=== PATIENT | female | born 1945 | race Caucasian/White ===

== ENCOUNTER 2019-12-24 07:46 | Inpatient (IN) | payer OTHER ==
--- NOTE | 2019-12-24 08:07 | PDOC ---
History of Present Illness - General Chief Complaint: Lethargy Stated Complaint: LATHARGIC Time Seen by Provider: 12/24/19 07:59 - History of Present Illness Initial Comments: 12/24/19 09:16 HPI: This is a 74 y/o female with a PMH of HTN, PVD, IDDM, anemia, epilepsy, HLD, schizophrenia, CVA with residual deficits, baseline non-verbal BIBA from [facility] due to lethargy. She was started on unknown IV abx for a presumed infection due to a WBC of 15.9 on labs 2 days ago. Patient was febrile 102.4 upon arrival. ROS: Unable to evaluate because patient is non-verbal. PMH: HTN, PVD, IDDM, anemia, epilepsy, HLD, schizophrenia, CVA, baseline non- verbal PSx: Denied Social Hx: Denied etoh, tobacco, drug use Meds: See nurse note Allergies: See nurse note PE: GENERAL: Awake. Patient is non-verbal at baseline. Does not follow commands. HEENT: Normocephalic, atraumatic. PERRLA, EOMI. NECK: Normal ROM and supple. No lymphadenopathy, JVD, or masses. CARDIOVASCULAR: Regular rate and rhythm, normal S1 and S2, no murmurs, rubs or gallops PULMONARY: No respiratory distress. Breath sounds equal, clear to auscultation bilaterally. No wheezes, rales or rhonchi. ABDOMEN: Soft, normoactive bowel sounds. No guarding, no rebound. No masses EXTREMITIES: Normal range of motion, no edema or erythema. NEUROLOGICAL: Cranial nerves II through XII grossly intact. SKIN: Warm, Dry, normal turgor, no rashes or lesions noted. Normal capillary refill. PSYCHIATRIC: Appropriate affect. Cooperative MDM: This is a 74 y/o female with a PMH of HTN, PVD, IDDM, anemia, epilepsy, HLD, schizophrenia, CVA with residual deficits, baseline non-verbal BIBA from [facility] due to lethargy, leukocytosis. - Patient is hemodynamically stable - Per EMS signout from [facility], patient is non-verbal at baseline. - Recently started on abx for a WBC count of 15.9 found on labs at [facility]. - Febrile at 102.4 in ED. Sepsis workup: CXR: No acute abnormalities EKG: No ST elevations or T wave inversions Sinus rhythm Vent rate 95bpm [place] interval 126ms QRS duration 78ms QT/QTc 336/422 LAbs: WBC 14.6 Na 152 BUN 46 Creat .7 - Sodium and BUN unchanged from labs sent from group home Troponin neg LA 1.6 - 1g Ceftriaxone to cover UTI - Tylenol for fever 12/24/19 10:20 - Patient signed out to Dr. Mata Past History - Medical History Allergies/Adverse Reactions: Allergies Allergy/AdvReac Type Severity Reaction Status Date / Time No Known Allergies Allergy Verified 12/24/19 08:14 Home Medications: Ambulatory Orders Calcium Carbonate/Vitamin D3 [Caltrate-600 Plus (Nf)] 1 combo NR BID 04/21/12 Docusate Sodium [Colace -] 200 mg PO HS 04/21/12 Haloperidol [Haldol -] 3 mg PO HS 04/21/12 Losartan Potassium 25 mg PO DAILY 04/21/12 Simvastatin [Zocor -] 40 mg PO HS 04/21/12 levETIRAcetam [Keppra Oral Solution -] 750 mg PO BID 04/21/12 Haloperidol 1 mg PO BID PRN 06/19/13 Acetaminophen [Tylenol .Regular Strength -] 650 mg PO Q6H PRN #0 tablet 06/21/13 Insulin (Levemir) [Levemir Flexpen -] 10 units SQ HS #0 06/21/13 Magnesium Chloride [Slow-Mag -] 64 mg PO DAILY@0900 #0 tablet.sa 06/21/13 Oseltamivir Phosphate [Tamiflu -] 75 mg PO BID #0 capsule 06/21/13 levoFLOXacin [Levaquin -] 500 mg PO DAILY #7 tablet 06/21/13 Diabetes: Yes HTN: Yes Hypercholesterolemia: Yes Seizures: Yes - Psycho-Social/Smoking History Smoking Status: No Smoking History: Former smoker Have you smoked in the past 12 months: No Number of Cigarettes Smoked Daily: 0 ED Treatment Course - LABORATORY CBC & Chemistry Diagram: 12/24/19 08:34 12/24/19 08:34 Discharge - Discharge Information Problems reviewed: Yes Clinical Impression/Diagnosis: Sepsis Qualifiers: Sepsis type: sepsis due to unspecified organism Sepsis acute organ dysfunction status: unspecified Qualified Code(s): A41.9 - Sepsis, unspecified organism - Follow up/Referral - Patient Discharge Instructions - Post Discharge Activity
[2019-12-24] MEDS ORDERED: SODIUM CHLORIDE 0.9% 500 ML INFUS.BAG IV ONE (08:13)
[2019-12-24 08:15] VITALS: BMI 27.4
[2019-12-24 08:51] LABS: VENOUS PCO2 46.5 mmHg (38-52); VENOUS PH 7.418 (7.310-7.410)
[2019-12-24 08:52] LABS: BASO % 0.3 % (0-2.0); EOS % 0.3 % (0-4.5); HEMATOCRIT 41.8 % (32.4-45.2); HEMOGLOBIN 13.4 GM/dL (10.7-15.3); LYMPH % 27.5 % (8-40); MEAN CELL VOLUME 87.6 fl (80-96); MEAN PLT VOLUME 8.7 fl (7.5-11.1); MONO % 7.4 % (3.8-10.2); NEUT % 64.5 % (42.8-82.8); PLATELET COUNT 273 K/MM3 (134-434); RBC 4.78 M/mm3 (3.60-5.2); RDW 16.1 % (11.6-15.6); WHITE BLOOD COUNT 14.6 K/mm3 (4.0-10.0)
[2019-12-24] MEDS ORDERED: ACETAMINOPHEN 1000 MG/100 ML VIAL (NON FORMULARY) IVPB ONE (08:56)
[2019-12-24] MEDS ORDERED: LACTATED RINGERS SOLUTION 1000 ML INFUS.BAG IV ONE (09:00)
[2019-12-24 09:03] LABS: EPI CELLS 24 /uL (0-25.1); HYALINE CASTS 95 /uL (0-3.1); PH,URINE 6.5 (5.0-8.0); URINE APPEARANCE CLOUDY; URINE BACTERIA >9,000 /uL (0-1359); URINE BILIRUBIN NEGATIVE (NEGATIVE); URINE COLOR YELLOW; URINE GLUCOSE (UA) NEGATIVE (NEGATIVE); URINE KETONE NEGATIVE (NEGATIVE); URINE LEUK ESTERASE 2+ (NEGATIVE); URINE NITRITE POSITIVE (NEGATIVE); URINE PROTEIN 1+ (NEGATIVE); URINE RBC 41 /uL (0-23.9); URINE WBC 632 /uL (0-25.8)
[2019-12-24] MEDS ORDERED: ACETAMINOPHEN INJECTION 100 ML IVPB ONE (09:04)
[2019-12-24] MEDS ORDERED: CEFTRIAXONE 1 GM/50 ML BAG ONE (09:05)
[2019-12-24 09:06] LABS: ACTIVATED PTT 35.8 SECONDS (25.2-36.5)
[2019-12-24 09:12] LABS: INR 1.17 (0.83-1.09); PROTHROMBIN TIME (PATIENT) 14.3 SEC (9.7-13.0)
[2019-12-24 09:17] LABS: POTASSIUM 4.3 mmol/L (3.5-5.1)
[2019-12-24 09:20] LABS: BLOOD UREA NITROGEN 46.7 mg/dL (7-18)
[2019-12-24 09:23] LABS: CREATININE 0.7 mg/dL (0.55-1.3)
[2019-12-24 09:24] LABS: BILIRUBIN,TOTAL 0.5 mg/dL (0.2-1)
[2019-12-24 09:25] LABS: TOT PROT 7.1 g/dl (6.4-8.2)
[2019-12-24 10:08] LABS: URINE CRYSTALS NON SEEN /hpf; YEAST NON SEEN (NEGATIVE)
--- NOTE | 2019-12-24 10:53 | PDOC ---
Documentation entered by Celio Hodge SCRIBE, acting as scribe for Ariane Juares MD. Ariane Juares MD: This documentation has been prepared by the Naveen maldonado Aaron, SCRIBE, under my direction and personally reviewed by me in its entirety. I confirm that the documentation accurately reflects all work, treatment, procedures, and medical decision making performed by me. Attending Attestation - Resident Resident Name: Citlali Thomson - ED Attending Attestation I have performed the following: I have examined & evaluated the patient, The case was reviewed & discussed with the resident, I agree w/resident's findings & plan, Exceptions are as noted - HPI HPI: 12/24/19 10:29 The patient is a 74 year old female with a significant PMH of HTN, PVD, IDDM, anemia, epilepsy, HLD, schizophrenia, CVA with residual deficits (baseline non- verbal), who presents to the emergency department [facility] due to lethargy. Patient was had a fever of 102.4 on arrival. Allergies: NKDA Social Hx: Former smoker PCP: [facility] - Physicial Exam PE: 12/24/19 09:48 General: non-toxic appearing Chest: CTAB, good air entry, no wheezes rales or rhonchi CVS: + s1 s2, RRR Abdomen: soft, nt, no rebound, no guarding - Critical Care Time Total Critical Care Time: 30 Critical Care Statement: The care of this patient involved high complexity decision making to prevent further life threatening deterioration of the patient's condition and/or to evaluate & treat vital organ system(s) failure or risk of failure. - Medical Decision Making 12/24/19 09:48 74 yo F from [place] sent for increased lethargy although patient non-verbal at baseline, found to be febrile in ED, possible PNA vs. COVID vs. UTI. Plan: -labs -urine -COVID swab -cxr -IVF -tylenol -reassess This clinical encounter is taking place during a federal and state health care emergency attributable to the novel [place] Virus pandemic. The [employer] of the Department of Health and Human Services has declared, pursuant to the Public Health Service Act 319F-3 (42 U.S.C. 247d-6d), that a covered persons activities related to medical countermeasures against COVID-19 will be immune from liability under Federal and State law. 12/24/19 09:51 UA consistent with UTI. Will treat for urosepsis with ceftriaxone and admit. Heart Score/ECG Review - ECG Impressions Comment:: 12/24/19 09:51 sinus, rate 95, no ischemic changes Discharge - Discharge Information Problems reviewed: Yes Clinical Impression/Diagnosis: Sepsis Qualifiers: Sepsis type: sepsis due to unspecified organism Sepsis acute organ dysfunction status: unspecified Qualified Code(s): A41.9 - Sepsis, unspecified organism - Follow up/Referral - Patient Discharge Instructions - Post Discharge Activity
--- NOTE | 2019-12-24 12:24 | HP ---
Admitting History and Physical - Admission Chief Complaint: Acute fever and lethargy History of Present Illness: This 74 yr old w/f with PMH of HTN, PVD, IDDM, anemia, epilepsy, HLD, schizophrenia, CVA, nonverbal admitted via ER with an acute fever, lethargy, leukocytosis, and an acute UTI, acute hypernatremia and an acute prerenal azotemia. History Source: Medical Record Limitations to Obtaining History: Dementia - Past Medical History [employer] SUPER[employer]OR: Yes: CVA, Dementia, Seizure Cardiovascular: Yes: HTN, Hyperlipdemia Pulmonary: No: Asthma, Bronchitis, Cancer, COPD, O2 Dependent, Pneumonia, Previously Intubated, Pulmonary Embolus, Pulmonary Fibrosis, Sleep Apnea, Other Gastrointestinal: Yes: Constipation Hepatobiliary: No: Cirrhosis, Cholelithiasis, Cholecystitis, Choledocholithiasis, Hepatitis A, Hepatitis B, Hepatitis C, Other Renal/: No: Renal Failure, Renal Inusuff, BPH, Cancer, Hematuria, Hemodialysis, Neurogenic Bladder, Renal Calculi, UTI, Other Reproductive: No: Ectopic , Endometriosis, Fibroids, PID, Polycystic Ovary Syndrome, Postmenopausal, Other ...: No Heme/Onc: Yes: Anemia Infectious Disease: No: AIDS, C-Diff, Herpes Zoster, HIV, MRSA, STD's, Tuberculosis, VREF, Other Psych: Yes: Schizophrenia Musculoskeletal: Yes: Osteoarthritis Rheumatology: No: Fibromyalgia, Gout, Lupus, Rheumatoid Arthritis, Sarcoidosis, Vasculitis, Other ENT: No: Allergic Rhinitis, Sinusitis, Other Endocrine: Yes: Diabetes Mellitus Dermatology: No: Basal Cell, Cellulitis, Eczema, Melanoma, Psoriasis, Squamous C ell, Other - Past Surgical History Past Surgical History: No: None, AAA Repair, AICD, Amputation, Appendectomy, Arthrosocopy, AV Fistula/Graft, Bariatric Surgery, Breast Biopsy, Bypass, CABG, Carotid Endarterectomy, Cataract Removal, Cholecystectomy, Colectomy, Colonoscopy, Colostomy, Craniotomy, , Cystectomy, Hernia Repair, Hysterectomy, Ileal Conduit, Ileosotomy, Joint Replacement, Kidney Transplant, Laminectomy, Liver Transplant, Mastectomy, Nephrectomy, Oopherectomy, Orchiectomy, Permanent Pacemaker, Prostatectomy, Splenectomy, Stent, Thoraco becky, TURP, Tonsillectomy, Tubal Ligation, Upper Endoscopy, Valve Replacement, Vasectomy, Vein Stripping/Ligation - Smoking History Smoking history: Former smoker Have you smoked in the past 12 months: No Aproximately how many cigarettes per day: 0 - Alcohol/Substance Use Hx Alcohol Use: No - Social History Usual Living Arrangement: Yes: [facility] Home Medications - Allergies Allergies/Adverse Reactions: Allergies Allergy/AdvReac Type Severity Reaction Status Date / Time No Known Allergies Allergy Verified 12/24/19 08:14 - Home Medications Home Medications: Ambulatory Orders Calcium Carbonate/Vitamin D3 [Caltrate-600 Plus (Nf)] 1 combo NR BID 04/21/12 Docusate Sodium [Colace -] 200 mg PO HS 04/21/12 Haloperidol [Haldol -] 3 mg PO HS 04/21/12 Losartan Potassium 25 mg PO DAILY 04/21/12 Simvastatin [Zocor -] 40 mg PO HS 04/21/12 levETIRAcetam [Keppra Oral Solution -] 750 mg PO BID 04/21/12 Haloperidol 1 mg PO BID PRN 06/19/13 Acetaminophen [Tylenol .Regular Strength -] 650 mg PO Q6H PRN #0 tablet 06/21/13 Insulin (Levemir) [Levemir Flexpen -] 10 units SQ HS #0 06/21/13 Magnesium Chloride [Slow-Mag -] 64 mg PO DAILY@0900 #0 tablet.sa 06/21/13 Oseltamivir Phosphate [Tamiflu -] 75 mg PO BID #0 capsule 06/21/13 levoFLOXacin [Levaquin -] 500 mg PO DAILY #7 tablet 06/21/13 Review of Systems - Review of Systems Constitutional: reports: Fever, Lethargy Eyes: reports: No Symptoms HENT: reports: No Symptoms Neck: reports: No Symptoms Cardiovascular: reports: No Symptoms Respiratory: reports: No Symptoms Gastrointestinal: reports: Constipation Genitourinary: reports: No Symptoms Breasts: reports: No Symptoms Reported Musculoskeletal: reports: Decreased ROM, Muscle Weakness Integumentary: reports: No Symptoms Neurological: reports: Confusion, Pre-Existing Deficit, Unsteady Gait, Weakness Endocrine: reports: No Symptoms Hematology/Lymphatic: reports: No Symptoms Psychiatric: reports: Paranoia Physical Examination Vital Signs: Vital Signs Temperature 98.9 F 12/24/19 10:45 Pulse Rate 67 12/24/19 10:45 Respiratory Rate 19 12/24/19 10:45 Blood Pressure 106/52 L 12/24/19 10:45 O2 Sat by Pulse Oximetry (%) 98 12/24/19 10:45 Constitutional: Yes: Well Nourished, No Distress, Calm Eyes: Yes: Conjunctiva Clear, EOM Intact HENT: Yes: Atraumatic, Normocephalic Neck: Yes: Supple, Trachea Midline Cardiovascular: Yes: Regular Rate and Rhythm Respiratory: Yes: Regular, CTA Bilaterally Gastrointestinal: Yes: Normal Bowel Sounds, Soft ...Rectal Exam: Yes: Deferred Renal/: Yes: Zepeda Present, Incontinence Breast(s): Yes: WNL Musculoskeletal: Yes: Joint Stiffness, Muscle Weakness Extremities: Yes: WNL Edema: No Peripheral Pulses WNL: Yes Integumentary: Yes: Skin Tear Neurological: Yes: Alert, Lethargy, Pre-Existing Deficit, Seizure, Unsteady Gait, Weakness ...Motor Strength: LUE (muscle weakness), LLE (muscle weakness), RUE (muscle weakness), RLE (muscle weakness) Psychiatric: Yes: Alert Labs: CBC, BMP 12/24/19 08:34 12/24/19 08:34 Imaging - Results Chest X-ray: Report Reviewed EKG: Report Reviewed Other: Report Reviewed (lab data reviewed) Problem List - Problems (1) Urinary tract infection Code(s): N39.0 - URINARY TRACT INFECTION, SITE NOT SPECIFIED (2) Fever Code(s): R50.9 - FEVER, UNSPECIFIED (3) Leukocytosis Code(s): D72.829 - ELEVATED WHITE BLOOD CELL COUNT, UNSPECIFIED (4) Prerenal azotemia Code(s): R79.89 - OTHER SPECIFIED ABNORMAL FINDINGS OF BLOOD CHEMISTRY (5) Dehydration Code(s): E86.0 - DEHYDRATION (6) Hypernatremia Code(s): E87.0 - HYPEROSMOLALITY AND HYPERNATREMIA (7) Sepsis due to urinary tract infection Code(s): A41.9 - SEPSIS, UNSPECIFIED ORGANISM; N39.0 - URINARY TRACT INFECTION, SITE NOT SPECIFIED (8) Sepsis Code(s): A41.9 - SEPSIS, UNSPECIFIED ORGANISM Qualifiers: Sepsis type: sepsis due to unspecified organism Sepsis acute organ dysfunction status: unspecified Qualified Code(s): A41.9 - Sepsis, unspecified organism Assessment/Plan Assessment/plan: acute sepsis due to UTI, acute lethargy, acute fever, acute leukocytosis, acute hypernatremia, acute prerenal azotemia, acute dehydration, nonverbal, htn, hld, pvd, iddm, schizophremia, cva; IV fluids for dehydration and prerenal azotemia; IV Ceftriaxone for sepsis due to UTI; SQ Lovenox and oral pantoprazole for DVT/GI prophylaxis; physical therapy for deconditioning; atorvastatin for HLD; losartan for HTN; Haloperidol for behavior disorder; docusate for constipation; sliding scale regular insulin coverage for IDDM; Keppra for seizure disorder; consult to ID pending.
[2019-12-24] MEDS ORDERED: HALOPERIDOL 1 MG TABLET PO PRN (13:18)
[2019-12-24] MEDS ORDERED: ACETAMINOPHEN 325 MG TABLET (FP) PO PRN (13:20)
[2019-12-24] MEDS ORDERED: DEXTROSE 5%-WATER - 1,000 ML IV SCH (13:30)
[2019-12-24] MEDS ORDERED: ENOXAPARIN NA (PORCINE) 30 MG/0.3 ML DISP.SYRIN SQ SCH (13:45)
[2019-12-24] MEDS: DOCUSATE SODIUM 100 MG CAPSULE (FP) PO SCH (14:20)
[2019-12-24] MEDS: CHOLECALCIFEROL (VIT D3) 1,000 UNIT (25 MCG) TABLET PO SCH (14:20)
[2019-12-24] MEDS: DEXTROSE 5%-WATER - 1,000 ML IV SCH (16:41)
[2019-12-24] MEDS: LOSARTAN POTASSIUM 25 MG TABLET PO SCH (16:42)
[2019-12-24] MEDS: levETIRAcetam 500 MG/5 ML ORAL SOLUTION (UNIT-DOSE CUPS) PO SCH ×2 (16:42→23:34)
[2019-12-24] MEDS: PANTOPRAZOLE 40 MG TABLET PO SCH (16:42)
[2019-12-24] MEDS: CALCIUM CARBONATE 650 MG TABLET PO SCH ×2 (17:07→23:20)
[2019-12-24] MEDS ORDERED: ENOXAPARIN NA (PORCINE) 40 MG/0.4 ML DISP.SYRIN SQ SCH (17:08)
[2019-12-24] MEDS: MAGNESIUM CL 64 MG TABLET.SA PO SCH (17:09)
[2019-12-24] MEDS: ENOXAPARIN NA (PORCINE) 40 MG/0.4 ML DISP.SYRIN SQ SCH (17:18)
[2019-12-24] MEDS: INSULIN SLIDING SCALE (NOVOLOG) 1 VIAL SQ SCH (18:16)
[2019-12-24] MEDS ORDERED: ACETAMINOPHEN 650 MG SUPP.RECT RC PRN (23:12)
[2019-12-24] MEDS: HALOPERIDOL 1 MG TABLET PO SCH (23:21)
[2019-12-24] MEDS: ATORVASTATIN CA 20 MG TABLET (FP) PO SCH (23:21)
[2019-12-24] MEDS: levETIRAcetam 500 MG/5 ML INJECTION VIAL IVPB SCH (23:47)
[2019-12-25] MEDS: INSULIN SLIDING SCALE (NOVOLOG) 1 VIAL SQ SCH ×3 (06:09→17:56)
[2019-12-25 07:33] LABS: BASO % 1.3 % (0-2.0); EOS % 0.9 % (0-4.5); HEMATOCRIT 34.5 % (32.4-45.2); HEMOGLOBIN 11.2 GM/dL (10.7-15.3); MCH 28.6 pg (25.7-33.7); MCHC 32.4 g/dl (32.0-36.0); MEAN CELL VOLUME 88.3 fl (80-96); MEAN PLT VOLUME 8.9 fl (7.5-11.1); MONO % 5.4 % (3.8-10.2); NEUT % 67.4 % (42.8-82.8); PLATELET COUNT 196 K/MM3 (134-434); RDW 15.4 % (11.6-15.6); WHITE BLOOD COUNT 11.3 K/mm3 (4.0-10.0)
[2019-12-25 07:43] LABS: POTASSIUM 3.1 mmol/L (3.5-5.1)
[2019-12-25 07:48] LABS: CALCIUM 8.1 mg/dL (8.5-10.1)
[2019-12-25 07:49] LABS: ALBUMIN 2.5 g/dl (3.4-5.0); BLOOD UREA NITROGEN 29.2 mg/dL (7-18)
[2019-12-25 07:52] LABS: CREATININE 0.3 mg/dL (0.55-1.3)
[2019-12-25 07:53] LABS: BILIRUBIN,TOTAL 0.4 mg/dL (0.2-1); TOT PROT 5.8 g/dl (6.4-8.2)
[2019-12-25] MEDS ORDERED: PT OWN MED DRAWER 7, Y5N ONE (09:29)
[2019-12-25 09:34] LABS: ERYTHROCYTE SEDIMENTATION RATE 46 mm/hr (0-30)
[2019-12-25] MEDS: ENOXAPARIN NA (PORCINE) 40 MG/0.4 ML DISP.SYRIN SQ SCH (09:40)
[2019-12-25] MEDS: LOSARTAN POTASSIUM 25 MG TABLET PO SCH (09:44)
[2019-12-25] MEDS: CALCIUM CARBONATE 650 MG TABLET PO SCH ×2 (09:45→22:32)
[2019-12-25] MEDS: CHOLECALCIFEROL (VIT D3) 1,000 UNIT (25 MCG) TABLET PO SCH (09:45)
[2019-12-25] MEDS: PANTOPRAZOLE 40 MG TABLET PO SCH (09:45)
[2019-12-25] MEDS: MAGNESIUM CL 64 MG TABLET.SA PO SCH (09:45)
[2019-12-25] MEDS: DOCUSATE SODIUM 100 MG CAPSULE (FP) PO SCH (09:45)
--- NOTE | 2019-12-25 10:08 | PN ---
Progress Note, Physician Chief Complaint: Patient seen and examined at the bedside, no acute events from last night, nonverbal, afebrile, fair appetite. History of Present Illness: This 74 yr old w/f with PMH of HTN, PVD, IDDM, anemia, CVA, schizophrenia, HLD, epilepsy admitted via ER with an acute fever, lethargy, UTI, dehydration, prerenal azotemia, and an acute hypernatremia. - Current Medication List Current Medications: Active Medications Acetaminophen (Tylenol -) 650 mg PO Q6H PRN PRN Reason: FEVER Acetaminophen (Tylenol Suppository -) 650 mg RC Q6H PRN PRN Reason: FEVER Atorvastatin Calcium (Lipitor -) 20 mg PO HS [facility] Last Admin: 12/24/19 23:21 Dose: Not Given Documented by: Calcium Carbonate (Calcium Carbonate -) 650 mg PO BID [facility] Last Admin: 12/25/19 09:45 Dose: 650 mg Documented by: Cholecalciferol (Vitamin D3 -) 1,000 unit PO DAILY [facility] Last Admin: 12/25/19 09:45 Dose: 1,000 unit Documented by: Docusate Sodium (Colace -) 200 mg PO DAILY [facility] Last Admin: 12/25/19 09:45 Dose: Not Given Documented by: Enoxaparin Sodium (Lovenox -) 40 mg SQ DAILY [facility] Last Admin: 12/25/19 09:40 Dose: 40 mg Documented by: Haloperidol (Haldol -) 3 mg PO HS [facility] Last Admin: 12/24/19 23:21 Dose: Not Given Documented by: Haloperidol (Haldol -) 1 mg PO BID PRN PRN Reason: AGITATION Dextrose (D5w -) 1,000 mls @ 60 mls/hr IV ASDIR [facility] Last Admin: 12/24/19 16:41 Dose: 60 mls/hr Documented by: Insulin Aspart (Novolog Vial Sliding Scale -) 1 vial SQ TIDAC [facility]; Protocol Last Admin: 12/25/19 06:09 Dose: 2 units Documented by: Levetiracetam (Keppra Injection -) 750 mg IVPB Q12H [facility] Last Admin: 12/24/19 23:47 Dose: 750 mg Documented by: Losartan Potassium (Cozaar -) 25 mg PO DAILY [facility] Last Admin: 12/25/19 09:44 Dose: 25 mg Documented by: Magnesium Chloride (Slow-Mag -) 64 mg PO DAILY [facility] Last Admin: 12/25/19 09:45 Dose: 64 mg Documented by: Pantoprazole Sodium (Protonix -) 40 mg PO DAILY [facility] Last Admin: 12/25/19 09:45 Dose: 40 mg Documented by: - Objective Vital Signs: Vital Signs Temperature 97.5 F L 12/25/19 06:00 Pulse Rate 70 12/25/19 06:00 Respiratory Rate 18 12/25/19 09:00 Blood Pressure 142/79 12/25/19 06:00 O2 Sat by Pulse Oximetry (%) 99 12/25/19 09:00 Constitutional: Yes: Well Nourished, No Distress, Calm Eyes: Yes: Conjunctiva Clear, EOM Intact HENT: Yes: Atraumatic, Normocephalic Neck: Yes: Supple, Trachea Midline Cardiovascular: Yes: Regular Rate and Rhythm Respiratory: Yes: Regular, CTA Bilaterally Gastrointestinal: Yes: Normal Bowel Sounds, Soft ...Rectal Exam: Yes: Deferred Genitourinary: Yes: Zepeda Present, Incontinence Breast(s): Yes: WNL Musculoskeletal: Yes: Muscle Weakness Extremities: Yes: WNL Edema: No Peripheral Pulses WNL: Yes Integumentary: Yes: Pressure Ulcer (sacrum) Wound/Incision: Yes: Open to air Neurological: Yes: Alert, Pre-Existing Deficit, Weakness, Other (nonverbal) ...Motor Strength: LUE (generalized muscle weakness of all extremities) Psychiatric: Yes: Alert Labs: CBC, BMP 12/25/19 06:40 12/25/19 06:40 INR, PTT INR 1.17 (0.83-1.09) H 12/24/19 08:34 - ....Imaging Other: Report Reviewed (lab data reviewed) Problem List - Problems (1) Urinary tract infection Code(s): N39.0 - URINARY TRACT INFECTION, SITE NOT SPECIFIED (2) Fever Code(s): R50.9 - FEVER, UNSPECIFIED (3) Leukocytosis Code(s): D72.829 - ELEVATED WHITE BLOOD CELL COUNT, UNSPECIFIED (4) Prerenal azotemia Code(s): R79.89 - OTHER SPECIFIED ABNORMAL FINDINGS OF BLOOD CHEMISTRY (5) Dehydration Code(s): E86.0 - DEHYDRATION (6) Hypernatremia Code(s): E87.0 - HYPEROSMOLALITY AND HYPERNATREMIA (7) Sepsis due to urinary tract infection Code(s): A41.9 - SEPSIS, UNSPECIFIED ORGANISM; N39.0 - URINARY TRACT INFECTION, SITE NOT SPECIFIED (8) Sepsis Code(s): A41.9 - SEPSIS, UNSPECIFIED ORGANISM Qualifiers: Sepsis type: sepsis due to unspecified organism Sepsis acute organ dysfunction status: unspecified Qualified Code(s): A41.9 - Sepsis, unspecified organism (9) Hypokalemia Code(s): E87.6 - HYPOKALEMIA Assessment/Plan Assessment/plan: acute lethargy, acute fever, acute leukocytosis, acute hypernatremia, acute hypokalemia, acute dehydration, acute prerenal azotemia, UTI, HTN, HLD, IDDM, PVD, CVA, schizophrenia, anemia, epilepsy; IV fluids for dehydration; IV Ceftriaxone for UTI; sliding scale regular insulin coverage for IDDM; SQ Lovenox and oral pantoprazole for DVT/GI prophylaxis; atorvastatin for HLD; losartan for HTN; haloperidol for behavior disorder; tylenol supp for fever; keppra for seizure disorder; k-dur for hypokalemia; docusate for constipation; consult to ID pending.
[2019-12-25] MEDS ORDERED: INSULIN (NOVOLOG) ASPART 100 UNITS/ML 10ML VIAL ONE (11:49)
[2019-12-25] MEDS: POTASSIUM CHLORIDE TABS 20 MEQ TABLET.ER (FP) PO SCH (11:52)
[2019-12-25] MEDS: levETIRAcetam 500 MG/5 ML INJECTION VIAL IVPB SCH ×2 (11:52→22:33)
[2019-12-25] MEDS: DEXTROSE 5%-WATER - 1,000 ML IV SCH (17:56)
[2019-12-25] MEDS: HALOPERIDOL 1 MG TABLET PO SCH (21:28)
--- NOTE | 2019-12-25 21:55 | PN ---
Progress Note (short form) - Note Progress Note: ID CONSULT DICTATED
[2019-12-25] MEDS ORDERED: cefTRIAXone SODIUM 1 GM VIAL ONE (22:26)
[2019-12-25] MEDS ORDERED: DEXTROSE 5%-WATER - 50 ML IVPB ONE (22:26)
[2019-12-25] MEDS: CEFTRIAXONE 1 GM in DEXTROSE 5%-WATER - 50 ML IVPB SCH (22:33)
[2019-12-25] MEDS: ATORVASTATIN CA 20 MG TABLET (FP) PO SCH (22:33)
[2019-12-26] MEDS: INSULIN SLIDING SCALE (NOVOLOG) 1 VIAL SQ SCH ×3 (06:48→17:11)
[2019-12-26] MEDS: DEXTROSE 5%-WATER - 1,000 ML IV SCH ×2 (06:48→11:00)
[2019-12-26 07:01] LABS: EOS % 0.7 % (0-4.5); HEMATOCRIT 32.5 % (32.4-45.2); HEMOGLOBIN 10.5 GM/dL (10.7-15.3); LYMPH % 20.8 % (8-40); MCH 28.3 pg (25.7-33.7); MCHC 32.3 g/dl (32.0-36.0); MEAN CELL VOLUME 87.5 fl (80-96); MEAN PLT VOLUME 9.6 fl (7.5-11.1); MONO % 5.5 % (3.8-10.2); PLATELET COUNT 178 K/MM3 (134-434); RBC 3.71 M/mm3 (3.60-5.2); WHITE BLOOD COUNT 10.3 K/mm3 (4.0-10.0)
[2019-12-26 07:17] LABS: POTASSIUM 3.1 mmol/L (3.5-5.1)
[2019-12-26 07:25] LABS: ALBUMIN 2.4 g/dl (3.4-5.0); CALCIUM 8.2 mg/dL (8.5-10.1)
[2019-12-26 07:26] LABS: BLOOD UREA NITROGEN 22.8 mg/dL (7-18)
[2019-12-26 07:29] LABS: CREATININE 0.3 mg/dL (0.55-1.3)
[2019-12-26 07:30] LABS: BILIRUBIN,TOTAL 0.5 mg/dL (0.2-1); TOT PROT 5.5 g/dl (6.4-8.2)
--- NOTE | 2019-12-26 08:46 | CONS ---
INFECTIOUS DISEASE CONSULTATION DATE OF CONSULTATION: DATE OF DICTATION: 12/25/2019 HISTORY: The patient is a 74-year-old female evaluated for possible sepsis secondary to UTI. History was obtained from the chart as she cannot give a history secondary to her mental status. She is a 74-year-old female. She has a history of multiple medical problems including insulin-dependent diabetes mellitus and schizophrenia and stroke who was transferred from her residential facility for evaluation of lethargy. She was noted to have fever 102.4 on arrival and a white blood cell count of 15.9. She was empirically treated with ceftriaxone for presumed urinary tract infection/sepsis secondary to UTI. She is unable to give any additional history. At the present time she is awake, but not verbally responsive. PAST MEDICAL HISTORY: Positive for hypertension, peripheral vascular disease, insulin-dependent diabetes mellitus, anemia, seizure disorder, hyperlipidemia, schizophrenia, stroke. Her baseline status is nonverbal. ALLERGIES: No known allergies. MEDICATIONS AT THE CARE HOME: Include Colace, Haldol, Zocor, Keppra, insulin. SOCIAL HISTORY: She is dependent in activities of daily living. She is a former smoker. SYSTEMS REVIEW: Neurologic: Positive for stroke. Cardiac: Negative chest pain or palpitations. Respiratory: Negative cough or sputum production. Gastrointestinal: Negative vomiting or diarrhea. Genitourinary: Positive for urinary tract infection. LABORATORY DATA: White blood cell count on admission 14.6, hematocrit 34.5, platelets 196, ESR 46. BUN 29, creatinine 0.3, liver enzymes normal. Urine analysis 632 white cells. COVID-19 PCR not detected. Blood and urine cultures are pending. Doppler exam no evidence of DVT. Chest x-ray no acute infiltrate. PHYSICAL EXAMINATION: General: She is awake. She is not verbally responsive. Vital Signs: Temperature is 97.5, blood pressure 142/79, pulse 70 regular, respirations 18 per minute, O2 saturation 99%. HEENT: Sclerae are anicteric. Heart: Sounds S1, S2. Lungs: Grossly clear. Abdomen: Soft, nontender. No suprapubic or flank tenderness. Extremities: Negative for edema. Negative Homans sign. IMPRESSION: 1. Urinary tract infection, rule out sepsis secondary to urinary tract infection. 2. Fever, leukocytosis, rule out sepsis secondary to urinary tract infection. 3. History of stroke. 4. History of diabetes mellitus. Concerned about the possibility of sepsis secondary to urinary tract infection in light of high grade fever to 102 and elevated white blood cell count. Await sepsis workup. Empiric antibiotic coverage with ceftriaxone. Further recommendations pending cultures. Will follow. Thank you for the kind referral. LULI RAI M.D. [id number]
--- NOTE | 2019-12-26 08:53 | PN ---
Progress Note, Physician Chief Complaint: Patient seen and examined at the bedside, no acute events from last night, afebrile, nonverbal. History of Present Illness: This 74 yr old w/f with PMH of HTN, HLD, schizophrenia, anemia, PVD, CVA, IDDM, epilepsy admitted via ER with an acute fever, lethargy, UTI, leukocytosis, prerenal azotemia, dehydration, and an acute hypernatremia. - Current Medication List Current Medications: Active Medications Acetaminophen (Tylenol -) 650 mg PO Q6H PRN PRN Reason: FEVER Acetaminophen (Tylenol Suppository -) 650 mg RC Q6H PRN PRN Reason: FEVER Atorvastatin Calcium (Lipitor -) 20 mg PO HS [facility] Last Admin: 12/25/19 22:33 Dose: 20 mg Documented by: Calcium Carbonate (Calcium Carbonate -) 650 mg PO BID [facility] Last Admin: 12/25/19 22:32 Dose: 650 mg Documented by: Cholecalciferol (Vitamin D3 -) 1,000 unit PO DAILY [facility] Last Admin: 12/25/19 09:45 Dose: 1,000 unit Documented by: Docusate Sodium (Colace -) 200 mg PO DAILY [facility] Last Admin: 12/25/19 09:45 Dose: Not Given Documented by: Enoxaparin Sodium (Lovenox -) 40 mg SQ DAILY [facility] Last Admin: 12/25/19 09:40 Dose: 40 mg Documented by: Haloperidol (Haldol -) 3 mg PO HS [facility] Last Admin: 12/25/19 21:28 Dose: Not Given Documented by: Haloperidol (Haldol -) 1 mg PO BID PRN PRN Reason: AGITATION Dextrose (D5w -) 1,000 mls @ 60 mls/hr IV ASDIR [facility] Last Admin: 12/26/19 06:48 Dose: 60 mls/hr Documented by: Ceftriaxone Sodium 1 gm/ (Dextrose) 50 mls @ 100 mls/hr IVPB DAILY [facility]; Protocol Last Admin: 12/25/19 22:33 Dose: 100 mls/hr Documented by: Insulin Aspart (Novolog Vial Sliding Scale -) 1 vial SQ TIDAC [facility]; Protocol Last Admin: 12/26/19 06:48 Dose: 4 units Documented by: Levetiracetam (Keppra Injection -) 750 mg IVPB Q12H [facility] Last Admin: 12/25/19 22:33 Dose: 750 mg Documented by: Losartan Potassium (Cozaar -) 25 mg PO DAILY [facility] Last Admin: 12/25/19 09:44 Dose: 25 mg Documented by: Magnesium Chloride (Slow-Mag -) 64 mg PO DAILY [facility] Last Admin: 12/25/19 09:45 Dose: 64 mg Documented by: Pantoprazole Sodium (Protonix -) 40 mg PO DAILY [facility] Last Admin: 12/25/19 09:45 Dose: 40 mg Documented by: Potassium Chloride (K-Dur -) 40 meq PO DAILY [facility] Last Admin: 12/25/19 11:52 Dose: 40 meq Documented by: - Objective Vital Signs: Vital Signs Temperature 97.7 F 12/26/19 06:00 Pulse Rate 69 12/26/19 06:00 Respiratory Rate 20 12/26/19 06:00 Blood Pressure 110/65 12/26/19 06:00 O2 Sat by Pulse Oximetry (%) 97 12/26/19 01:00 Constitutional: Yes: Well Nourished, No Distress, Calm Eyes: Yes: Conjunctiva Clear, EOM Intact HENT: Yes: Atraumatic, Normocephalic Neck: Yes: Supple, Trachea Midline Cardiovascular: Yes: Regular Rate and Rhythm Respiratory: Yes: Regular, CTA Bilaterally Gastrointestinal: Yes: Normal Bowel Sounds, Soft ...Rectal Exam: Yes: Deferred Genitourinary: Yes: Zepeda Present, Incontinence Breast(s): Yes: WNL Musculoskeletal: Yes: Muscle Weakness Extremities: Yes: WNL Edema: No Peripheral Pulses WNL: Yes Integumentary: Yes: Pressure Ulcer (sacrum) Neurological: Yes: Alert, Weakness, Other (nonverbal) ...Motor Strength: LUE (muscle weakness), LLE (muscle weakness), RUE (muscle weakness), RLE (muscle weakness) Psychiatric: Yes: Alert Labs: CBC, BMP 12/26/19 05:35 INR, PTT INR 1.17 (0.83-1.09) H 12/24/19 08:34 - ....Imaging Other: Report Reviewed (lab data reviewed) Problem List - Problems (1) Urinary tract infection Code(s): N39.0 - URINARY TRACT INFECTION, SITE NOT SPECIFIED (2) Fever Code(s): R50.9 - FEVER, UNSPECIFIED (3) Leukocytosis Code(s): D72.829 - ELEVATED WHITE BLOOD CELL COUNT, UNSPECIFIED (4) Prerenal azotemia Code(s): R79.89 - OTHER SPECIFIED ABNORMAL FINDINGS OF BLOOD CHEMISTRY (5) Dehydration Code(s): E86.0 - DEHYDRATION (6) Hypernatremia Code(s): E87.0 - HYPEROSMOLALITY AND HYPERNATREMIA (7) Sepsis due to urinary tract infection Code(s): A41.9 - SEPSIS, UNSPECIFIED ORGANISM; N39.0 - URINARY TRACT INFECTION, SITE NOT SPECIFIED (8) Sepsis Code(s): A41.9 - SEPSIS, UNSPECIFIED ORGANISM Qualifiers: Sepsis type: sepsis due to unspecified organism Sepsis acute organ dysfunction status: unspecified Qualified Code(s): A41.9 - Sepsis, unspecified organism (9) Hypokalemia Code(s): E87.6 - HYPOKALEMIA Assessment/Plan Assessment/plan: acute UTI, acute fever, acute lethargy, acute leukocytosis, acute hypokalemia, acute hypernatremia, acute prerenal azotemia, acute dehydration, acute hypoproteinemia, acute hypoalbuminemia, HTN, HLD, anemia, PVD, CVA, IDDM, schizophrenia; IV fluids for dehydration; IV Ceftriaxone for UTI; SQ Lovenox and oral pantoprazole for DVT/GI prophylaxis; physical therapy for deconditioning; atorvastatin for HLD; Losartan for HTN; Novolog 70/30 mix and sliding scale regular insulin coverage for IDDM; Haloperidol for behavior disorder; IV potassium chloride for hypokalemia; docusate for constipation.
[2019-12-26] MEDS ORDERED: DEXTROSE 5%-WATER - 50 ML IVPB ONE (08:57)
[2019-12-26] MEDS ORDERED: cefTRIAXone SODIUM 1 GM VIAL ONE (08:57)
[2019-12-26] MEDS ORDERED: PT OWN MED DRAWER 7, Y5N ONE ×5 (08:57→21:18)
[2019-12-26] MEDS: CHOLECALCIFEROL (VIT D3) 1,000 UNIT (25 MCG) TABLET PO SCH (09:01)
[2019-12-26] MEDS: POTASSIUM CHLORIDE TABS 20 MEQ TABLET.ER (FP) PO SCH (09:01)
[2019-12-26] MEDS: ENOXAPARIN NA (PORCINE) 40 MG/0.4 ML DISP.SYRIN SQ SCH (09:02)
[2019-12-26] MEDS: CEFTRIAXONE 1 GM in DEXTROSE 5%-WATER - 50 ML IVPB SCH (09:02)
[2019-12-26] MEDS: CALCIUM CARBONATE 650 MG TABLET PO SCH ×2 (09:02→22:47)
[2019-12-26] MEDS: LOSARTAN POTASSIUM 25 MG TABLET PO SCH (09:02)
[2019-12-26] MEDS: DOCUSATE SODIUM 100 MG CAPSULE (FP) PO SCH (09:02)
[2019-12-26] MEDS: PANTOPRAZOLE 40 MG TABLET PO SCH (09:02)
[2019-12-26] MEDS: MAGNESIUM CL 64 MG TABLET.SA PO SCH (09:03)
[2019-12-26] MEDS: KCL 10 MEQ IVPB 10 MEQ/100 ML INFUS.BAG IVPB SCH ×3 (09:40→12:45)
--- NOTE | 2019-12-26 10:32 | EKG ---
Test Reason : Blood Pressure : / mmHG Vent. Rate : 095 BPM Atrial Rate : 095 BPM P-R Int : 126 ms QRS Dur : 078 ms QT Int : 336 ms P-R-T Axes : 003 032 016 degrees QTc Int : 422 ms NORMAL SINUS RHYTHM NORMAL ECG WHEN COMPARED WITH ECG OF 21-APR-2012 18:44, T WAVE VARIATION Confirmed by MARIANNE HERMOSILLO MD ([id number]) on 12/26/2019 10:31:48 AM Referred By: Confirmed By:MARIANNE HERMOSILLO MD
[2019-12-26] MEDS: levETIRAcetam 500 MG/5 ML INJECTION VIAL IVPB SCH ×2 (12:09→22:49)
--- NOTE | 2019-12-26 14:23 | PN ---
Progress Note, Physician History of Present Illness: AWAKE, NOT VERBALLY RESPONSIVE NO ACUTE DISTRESS AFEBRILE WBC IMPROVED BC (-) URINE C/S NORMAL SEGUNDO - Current Medication List Current Medications: Active Medications Acetaminophen (Tylenol -) 650 mg PO Q6H PRN PRN Reason: FEVER Acetaminophen (Tylenol Suppository -) 650 mg RC Q6H PRN PRN Reason: FEVER Atorvastatin Calcium (Lipitor -) 20 mg PO HS [facility] Last Admin: 12/25/19 22:33 Dose: 20 mg Documented by: Calcium Carbonate (Calcium Carbonate -) 650 mg PO BID [facility] Last Admin: 12/26/19 09:02 Dose: 650 mg Documented by: Cholecalciferol (Vitamin D3 -) 1,000 unit PO DAILY [facility] Last Admin: 12/26/19 09:01 Dose: 1,000 unit Documented by: Docusate Sodium (Colace -) 200 mg PO DAILY [facility] Last Admin: 12/26/19 09:02 Dose: 200 mg Documented by: Enoxaparin Sodium (Lovenox -) 40 mg SQ DAILY [facility] Last Admin: 12/26/19 09:02 Dose: 40 mg Documented by: Haloperidol (Haldol -) 3 mg PO HS [facility] Last Admin: 12/25/19 21:28 Dose: Not Given Documented by: Haloperidol (Haldol -) 1 mg PO BID PRN PRN Reason: AGITATION Ceftriaxone Sodium 1 gm/ (Dextrose) 50 mls @ 100 mls/hr IVPB DAILY [facility]; Protocol Last Admin: 12/26/19 09:02 Dose: 100 mls/hr Documented by: Dextrose (D5w -) 1,000 mls @ 50 mls/hr IV ASDIR [facility] Last Admin: 12/26/19 11:00 Dose: 50 mls/hr Documented by: Insulin Aspart (Novolog Vial Sliding Scale -) 1 vial SQ TIDAC [facility]; Protocol Last Admin: 12/26/19 12:45 Dose: 6 units Documented by: Insulin Aspart (Novolog Mix 70/30 Vial) 5 units SQ BIDAC [facility] Levetiracetam (Keppra Injection -) 750 mg IVPB Q12H [facility] Last Admin: 12/26/19 12:09 Dose: 750 mg Documented by: Losartan Potassium (Cozaar -) 25 mg PO DAILY [facility] Last Admin: 12/26/19 09:02 Dose: 25 mg Documented by: Magnesium Chloride (Slow-Mag -) 64 mg PO DAILY [facility] Last Admin: 12/26/19 09:03 Dose: 64 mg Documented by: Pantoprazole Sodium (Protonix -) 40 mg PO DAILY [facility] Last Admin: 12/26/19 09:02 Dose: 40 mg Documented by: - Objective Vital Signs: Vital Signs Temperature 97.6 F 12/26/19 09:00 Pulse Rate 66 12/26/19 09:00 Respiratory Rate 20 12/26/19 09:00 Blood Pressure 132/70 12/26/19 09:00 O2 Sat by Pulse Oximetry (%) 98 12/26/19 09:00 Constitutional: Yes: No Distress Eyes: Yes: Conjunctiva Clear Cardiovascular: Yes: Regular Rate and Rhythm, S1, S2 Respiratory: Yes: CTA Bilaterally Gastrointestinal: Yes: Normal Bowel Sounds, Soft. No: Tenderness Edema: No Labs: CBC, BMP 12/26/19 05:35 12/26/19 05:35 INR, PTT INR 1.17 (0.83-1.09) H 12/24/19 08:34 Assessment/Plan UTI R/O SEPSIS SECONDARY TO UTI FEVER/ LEUKOCYTOSIS CVA DIABETES MELLITUS CONTINUE EMPIRIC CEFTRIAXONE
[2019-12-26] MEDS: INSULIN (NOVOLOG MIX 70/30) 100 UNITS/ML MDV SQ SCH (17:09)
[2019-12-26] MEDS: ATORVASTATIN CA 20 MG TABLET (FP) PO SCH (22:45)
[2019-12-26] MEDS: HALOPERIDOL 1 MG TABLET PO SCH (22:46)
[2019-12-27] MEDS ORDERED: PT OWN MED DRAWER 7, Y5N ONE ×5 (06:01→19:57)
[2019-12-27] MEDS: INSULIN SLIDING SCALE (NOVOLOG) 1 VIAL SQ SCH ×3 (06:39→17:17)
[2019-12-27] MEDS: INSULIN (NOVOLOG MIX 70/30) 100 UNITS/ML MDV SQ SCH ×2 (06:40→17:17)
[2019-12-27] MEDS ORDERED: INSULIN (NOVOLOG) ASPART 100 UNITS/ML 10ML VIAL ONE ×2 (06:55→11:37)
[2019-12-27] MEDS ORDERED: INSULIN (NOVOLOG MIX 70/30) 100 UNITS/ML MDV SQ ONE ×2 (06:55→20:19)
[2019-12-27 08:57] LABS: POTASSIUM 3.5 mmol/L (3.5-5.1)
[2019-12-27 08:59] LABS: BASO % 0.7 % (0-2.0); EOS % 1.3 % (0-4.5); HEMATOCRIT 33.9 % (32.4-45.2); HEMOGLOBIN 11.1 GM/dL (10.7-15.3); LYMPH % 30.4 % (8-40); MCH 29.1 pg (25.7-33.7); MCHC 32.9 g/dl (32.0-36.0); MEAN CELL VOLUME 88.4 fl (80-96); MEAN PLT VOLUME 9.9 fl (7.5-11.1); MONO % 7.9 % (3.8-10.2); NEUT % 59.7 % (42.8-82.8); PLATELET COUNT 146 K/MM3 (134-434); RBC 3.84 M/mm3 (3.60-5.2); RDW 15.6 % (11.6-15.6); WHITE BLOOD COUNT 8.1 K/mm3 (4.0-10.0)
[2019-12-27 09:01] LABS: ALBUMIN 2.3 g/dl (3.4-5.0); BLOOD UREA NITROGEN 19.2 mg/dL (7-18); CALCIUM 8.2 mg/dL (8.5-10.1)
--- NOTE | 2019-12-27 09:03 | PN ---
Progress Note, Physician Chief Complaint: Patient seen and examined at the bedside, no acute events from last night, afebrile, nonverbal. History of Present Illness: This 74 yr old w/f with PMH of HTN,HLD, schizophrenia, anemia, PVD, CVA, IDDM, epilepsy admitted via ER with an acute fever, lethargy, UTI, leukocytosis, prerenal azotemia, dehydration and hypernatremia. - Current Medication List Current Medications: Active Medications Acetaminophen (Tylenol -) 650 mg PO Q6H PRN PRN Reason: FEVER Acetaminophen (Tylenol Suppository -) 650 mg RC Q6H PRN PRN Reason: FEVER Atorvastatin Calcium (Lipitor -) 20 mg PO HS [facility] Last Admin: 12/26/19 22:45 Dose: 20 mg Documented by: Calcium Carbonate (Calcium Carbonate -) 650 mg PO BID [facility] Last Admin: 12/26/19 22:47 Dose: 650 mg Documented by: Cholecalciferol (Vitamin D3 -) 1,000 unit PO DAILY [facility] Last Admin: 12/26/19 09:01 Dose: 1,000 unit Documented by: Docusate Sodium (Colace -) 200 mg PO DAILY [facility] Last Admin: 12/26/19 09:02 Dose: 200 mg Documented by: Enoxaparin Sodium (Lovenox -) 40 mg SQ DAILY [facility] Last Admin: 12/26/19 09:02 Dose: 40 mg Documented by: Haloperidol (Haldol -) 3 mg PO HS [facility] Last Admin: 12/26/19 22:46 Dose: 3 mg Documented by: Haloperidol (Haldol -) 1 mg PO BID PRN PRN Reason: AGITATION Ceftriaxone Sodium 1 gm/ (Dextrose) 50 mls @ 100 mls/hr IVPB DAILY [facility]; Protocol Last Admin: 12/26/19 09:02 Dose: 100 mls/hr Documented by: Dextrose (D5w -) 1,000 mls @ 50 mls/hr IV ASDIR [facility] Last Admin: 12/26/19 11:00 Dose: 50 mls/hr Documented by: Insulin Aspart (Novolog Vial Sliding Scale -) 1 vial SQ TIDAC [facility]; Protocol Last Admin: 12/27/19 06:39 Dose: 2 units Documented by: Insulin Aspart (Novolog Mix 70/30 Vial) 5 units SQ BIDAC [facility] Last Admin: 12/27/19 06:40 Dose: 5 units Documented by: Levetiracetam (Keppra Injection -) 750 mg IVPB Q12H [facility] Last Admin: 12/26/19 22:49 Dose: 750 mg Documented by: Losartan Potassium (Cozaar -) 25 mg PO DAILY [facility] Last Admin: 12/26/19 09:02 Dose: 25 mg Documented by: Magnesium Chloride (Slow-Mag -) 64 mg PO DAILY [facility] Last Admin: 12/26/19 09:03 Dose: 64 mg Documented by: Pantoprazole Sodium (Protonix -) 40 mg PO DAILY [facility] Last Admin: 12/26/19 09:02 Dose: 40 mg Documented by: - Objective Vital Signs: Vital Signs Temperature 97.8 F 12/27/19 06:00 Pulse Rate 61 12/27/19 06:00 Respiratory Rate 20 12/27/19 06:00 Blood Pressure 137/72 12/27/19 06:00 O2 Sat by Pulse Oximetry (%) 98 12/27/19 06:00 Constitutional: Yes: Well Nourished, No Distress, Calm Eyes: Yes: Conjunctiva Clear, EOM Intact HENT: Yes: Atraumatic, Normocephalic Neck: Yes: Supple, Trachea Midline Cardiovascular: Yes: Regular Rate and Rhythm Respiratory: Yes: Regular, CTA Bilaterally Gastrointestinal: Yes: Normal Bowel Sounds, Soft ...Rectal Exam: Yes: Deferred Genitourinary: Yes: Zepeda Present, Incontinence Breast(s): Yes: WNL Musculoskeletal: Yes: Muscle Weakness Extremities: Yes: WNL Edema: No Peripheral Pulses WNL: Yes Integumentary: Yes: Pressure Ulcer (sacrum) Neurological: Yes: Alert, Weakness ...Motor Strength: LUE (muscle weakness), LLE (muscle weakness), RUE (muscle weakness), RLE (muscle weakness) Psychiatric: Yes: Alert Labs: CBC, BMP 12/27/19 07:43 INR, PTT INR 1.17 (0.83-1.09) H 12/24/19 08:34 - ....Imaging Other: Report Reviewed (lab data reviewed) Problem List - Problems (1) Urinary tract infection Code(s): N39.0 - URINARY TRACT INFECTION, SITE NOT SPECIFIED (2) Fever Code(s): R50.9 - FEVER, UNSPECIFIED (3) Leukocytosis Code(s): D72.829 - ELEVATED WHITE BLOOD CELL COUNT, UNSPECIFIED (4) Prerenal azotemia Code(s): R79.89 - OTHER SPECIFIED ABNORMAL FINDINGS OF BLOOD CHEMISTRY (5) Dehydration Code(s): E86.0 - DEHYDRATION (6) Hypernatremia Code(s): E87.0 - HYPEROSMOLALITY AND HYPERNATREMIA (7) Sepsis due to urinary tract infection Code(s): A41.9 - SEPSIS, UNSPECIFIED ORGANISM; N39.0 - URINARY TRACT INFECTION, SITE NOT SPECIFIED (8) Sepsis Code(s): A41.9 - SEPSIS, UNSPECIFIED ORGANISM Qualifiers: Sepsis type: sepsis due to unspecified organism Sepsis acute organ dysfunction status: unspecified Qualified Code(s): A41.9 - Sepsis, unspecified organism (9) Hypokalemia Code(s): E87.6 - HYPOKALEMIA Assessment/Plan Assessment/plan: acute UTI, fever, lethargy, prerenal azotemia, dehydration, hypernatremia, HTN, HLD, anemia, PVD, CVA, IDDM, epilepsy, schizophrenia; IV Ceftriaxone for UTI; IV fluids for dehydration; SQ Lovenox and oral pantoprazole for DVT/GI prophylaxis; atorvastatin for HLD; losartan for HTN; Novolog 70/30 mix and sliding scale regular insulin coverage for IDDM; physical therapy for deconditioning; haloperidol for behavior disorder; keppra for epilepsy.
[2019-12-27 09:05] LABS: CREATININE 0.4 mg/dL (0.55-1.3)
[2019-12-27 09:06] LABS: BILIRUBIN,TOTAL 0.4 mg/dL (0.2-1); TOT PROT 5.4 g/dl (6.4-8.2)
[2019-12-27] MEDS ORDERED: DEXTROSE 5%-WATER - 50 ML IVPB ONE (10:32)
[2019-12-27] MEDS ORDERED: cefTRIAXone SODIUM 1 GM VIAL ONE (10:32)
[2019-12-27] MEDS: CEFTRIAXONE 1 GM in DEXTROSE 5%-WATER - 50 ML IVPB SCH (11:02)
[2019-12-27] MEDS: ENOXAPARIN NA (PORCINE) 40 MG/0.4 ML DISP.SYRIN SQ SCH (11:03)
[2019-12-27] MEDS: LOSARTAN POTASSIUM 25 MG TABLET PO SCH (11:10)
[2019-12-27] MEDS: CALCIUM CARBONATE 650 MG TABLET PO SCH ×2 (11:10→22:00)
[2019-12-27] MEDS: CHOLECALCIFEROL (VIT D3) 1,000 UNIT (25 MCG) TABLET PO SCH (11:11)
[2019-12-27] MEDS: PANTOPRAZOLE 40 MG TABLET PO SCH (11:11)
[2019-12-27] MEDS: DOCUSATE SODIUM 100 MG CAPSULE (FP) PO SCH (11:11)
[2019-12-27] MEDS: MAGNESIUM CL 64 MG TABLET.SA PO SCH (11:12)
[2019-12-27] MEDS: levETIRAcetam 500 MG/5 ML INJECTION VIAL IVPB SCH ×2 (11:29→22:19)
[2019-12-27] MEDS: DEXTROSE 5%-WATER - 1,000 ML IV SCH (12:46)
--- NOTE | 2019-12-27 15:30 | PN ---
Progress Note, Physician History of Present Illness: MORE LETHARGIC TODAY NOT VERBALLY RESPONSIVE NO ACUTE DISTRESS AFEBRILE WBC IMPROVED WNL BC (-) URINE C/S NORMAL SEGUNDO - Current Medication List Current Medications: Active Medications Acetaminophen (Tylenol -) 650 mg PO Q6H PRN PRN Reason: FEVER Acetaminophen (Tylenol Suppository -) 650 mg RC Q6H PRN PRN Reason: FEVER Atorvastatin Calcium (Lipitor -) 20 mg PO HS [facility] Last Admin: 12/26/19 22:45 Dose: 20 mg Documented by: Calcium Carbonate (Calcium Carbonate -) 650 mg PO BID [facility] Last Admin: 12/27/19 11:10 Dose: 650 mg Documented by: Cholecalciferol (Vitamin D3 -) 1,000 unit PO DAILY [facility] Last Admin: 12/27/19 11:11 Dose: 1,000 unit Documented by: Docusate Sodium (Colace -) 200 mg PO DAILY [facility] Last Admin: 12/27/19 11:11 Dose: 200 mg Documented by: Enoxaparin Sodium (Lovenox -) 40 mg SQ DAILY [facility] Last Admin: 12/27/19 11:03 Dose: 40 mg Documented by: Haloperidol (Haldol -) 3 mg PO HS [facility] Last Admin: 12/26/19 22:46 Dose: 3 mg Documented by: Haloperidol (Haldol -) 1 mg PO BID PRN PRN Reason: AGITATION Ceftriaxone Sodium 1 gm/ (Dextrose) 50 mls @ 100 mls/hr IVPB DAILY [facility]; Protocol Last Admin: 12/27/19 11:02 Dose: 100 mls/hr Documented by: Dextrose (D5w -) 1,000 mls @ 50 mls/hr IV ASDIR [facility] Last Admin: 12/27/19 12:46 Dose: 50 mls/hr Documented by: Insulin Aspart (Novolog Vial Sliding Scale -) 1 vial SQ TIDAC [facility]; Protocol Last Admin: 12/27/19 11:40 Dose: 2 unit Documented by: Insulin Aspart (Novolog Mix 70/30 Vial) 5 units SQ BIDAC [facility] Last Admin: 12/27/19 06:40 Dose: 5 units Documented by: Levetiracetam (Keppra Injection -) 750 mg IVPB Q12H [facility] Last Admin: 12/27/19 11:29 Dose: 750 mg Documented by: Losartan Potassium (Cozaar -) 25 mg PO DAILY [facility] Last Admin: 12/27/19 11:10 Dose: 25 mg Documented by: Magnesium Chloride (Slow-Mag -) 64 mg PO DAILY [facility] Last Admin: 12/27/19 11:12 Dose: 64 mg Documented by: Pantoprazole Sodium (Protonix -) 40 mg PO DAILY [facility] Last Admin: 12/27/19 11:11 Dose: 40 mg Documented by: - Objective Vital Signs: Vital Signs Temperature 97.9 F 12/27/19 12:54 Pulse Rate 84 12/27/19 12:54 Respiratory Rate 18 12/27/19 12:54 Blood Pressure 134/70 12/27/19 12:54 O2 Sat by Pulse Oximetry (%) 95 12/27/19 12:54 Constitutional: Yes: No Distress Eyes: Yes: Conjunctiva Clear Cardiovascular: Yes: Regular Rate and Rhythm, S1, S2 Respiratory: Yes: CTA Bilaterally Gastrointestinal: Yes: Normal Bowel Sounds, Soft. No: Tenderness Edema: Yes Edema: LLE: 1+, RLE: 1+ Labs: CBC, BMP 12/27/19 07:43 12/27/19 07:43 INR, PTT INR 1.17 (0.83-1.09) H 12/24/19 08:34 Assessment/Plan UTI R/O SEPSIS SECONDARY TO UTI FEVER/ LEUKOCYTOSIS CVA DIABETES MELLITUS MAY SUBSTITUTE CEFTIN 500MG PO BID X 7D
[2019-12-27] MEDS: ATORVASTATIN CA 20 MG TABLET (FP) PO SCH (22:00)
[2019-12-27] MEDS: HALOPERIDOL 1 MG TABLET PO SCH (22:00)
[2019-12-28] MEDS: INSULIN (NOVOLOG MIX 70/30) 100 UNITS/ML MDV SQ SCH ×2 (06:10→17:44)
[2019-12-28] MEDS: INSULIN SLIDING SCALE (NOVOLOG) 1 VIAL SQ SCH ×3 (06:10→17:45)
[2019-12-28 08:49] LABS: BASO % 0.7 % (0-2.0); EOS % 1.5 % (0-4.5); HEMATOCRIT 31.3 % (32.4-45.2); HEMOGLOBIN 10.2 GM/dL (10.7-15.3); LYMPH % 22.9 % (8-40); MCH 28.3 pg (25.7-33.7); MCHC 32.5 g/dl (32.0-36.0); MEAN CELL VOLUME 87.1 fl (80-96); MEAN PLT VOLUME 9.5 fl (7.5-11.1); MONO % 6.4 % (3.8-10.2); NEUT % 68.5 % (42.8-82.8); PLATELET COUNT 171 K/MM3 (134-434); RBC 3.59 M/mm3 (3.60-5.2); RDW 15.1 % (11.6-15.6); WHITE BLOOD COUNT 7.5 K/mm3 (4.0-10.0)
[2019-12-28] MEDS ORDERED: cefTRIAXone SODIUM 1 GM VIAL ONE (08:49)
[2019-12-28] MEDS ORDERED: DEXTROSE 5%-WATER - 50 ML IVPB ONE (08:50)
[2019-12-28 09:12] LABS: ALBUMIN 2.3 g/dl (3.4-5.0); BLOOD UREA NITROGEN 8.9 mg/dL (7-18); CALCIUM 8.1 mg/dL (8.5-10.1)
[2019-12-28 09:15] LABS: CREATININE 0.3 mg/dL (0.55-1.3)
[2019-12-28 09:17] LABS: BILIRUBIN,TOTAL 0.4 mg/dL (0.2-1); TOT PROT 5.2 g/dl (6.4-8.2)
--- NOTE | 2019-12-28 09:30 | PN ---
Progress Note, Physician Chief Complaint: Patient seen and examined at the bedside, no acute events from last night, afebrile. History of Present Illness: This 74 yr old w/f with PMH of HTN, HLD, schizophrenia, nonverbal, anemia, PVD, CVA, IDDM, epilepsy admitted via ER with an acute UTI, fever, lethargy, leukocytosis, prerenal azotemia, dehydration, and hypernatremia. - Current Medication List Current Medications: Active Medications Acetaminophen (Tylenol -) 650 mg PO Q6H PRN PRN Reason: FEVER Acetaminophen (Tylenol Suppository -) 650 mg RC Q6H PRN PRN Reason: FEVER Atorvastatin Calcium (Lipitor -) 20 mg PO HS [facility] Last Admin: 12/27/19 22:00 Dose: 20 mg Documented by: Calcium Carbonate (Calcium Carbonate -) 650 mg PO BID [facility] Last Admin: 12/27/19 22:00 Dose: 650 mg Documented by: Cholecalciferol (Vitamin D3 -) 1,000 unit PO DAILY [facility] Last Admin: 12/27/19 11:11 Dose: 1,000 unit Documented by: Docusate Sodium (Colace -) 200 mg PO DAILY [facility] Last Admin: 12/27/19 11:11 Dose: 200 mg Documented by: Enoxaparin Sodium (Lovenox -) 40 mg SQ DAILY [facility] Last Admin: 12/27/19 11:03 Dose: 40 mg Documented by: Haloperidol (Haldol -) 3 mg PO HS [facility] Last Admin: 12/27/19 22:00 Dose: 3 mg Documented by: Haloperidol (Haldol -) 1 mg PO BID PRN PRN Reason: AGITATION Ceftriaxone Sodium 1 gm/ (Dextrose) 50 mls @ 100 mls/hr IVPB DAILY [facility]; Protoco l Last Admin: 12/27/19 11:02 Dose: 100 mls/hr Documented by: Dextrose (D5w -) 1,000 mls @ 50 mls/hr IV ASDIR [facility] Last Admin: 12/27/19 12:46 Dose: 50 mls/hr Documented by: Insulin Aspart (Novolog Vial Sliding Scale -) 1 vial SQ TIDAC [facility]; Protocol Last Admin: 12/28/19 06:10 Dose: 2 unit Documented by: Insulin Aspart (Novolog Mix 70/30 Vial) 5 units SQ BIDAC [facility] Last Admin: 12/28/19 06:10 Dose: 5 units Documented by: Levetiracetam (Keppra Injection -) 750 mg IVPB Q12H [facility] Last Admin: 12/27/19 22:19 Dose: 750 mg Documented by: Losartan Potassium (Cozaar -) 25 mg PO DAILY [facility] Last Admin: 12/27/19 11:10 Dose: 25 mg Documented by: Magnesium Chloride (Slow-Mag -) 64 mg PO DAILY [facility] Last Admin: 12/27/19 11:12 Dose: 64 mg Documented by: Pantoprazole Sodium (Protonix -) 40 mg PO DAILY [facility] Last Admin: 12/27/19 11:11 Dose: 40 mg Documented by: - Objective Vital Signs: Vital Signs Temperature 98.3 F 12/28/19 06:00 Pulse Rate 65 12/28/19 06:00 Respiratory Rate 20 12/28/19 06:00 Blood Pressure 136/73 12/28/19 06:00 O2 Sat by Pulse Oximetry (%) 98 12/28/19 06:00 Constitutional: Yes: No Distress Eyes: Yes: Conjunctiva Clear, EOM Intact HENT: Yes: Atraumatic, Normocephalic Neck: Yes: Supple, Trachea Midline Cardiovascular: Yes: Regular Rate and Rhythm Respiratory: Yes: Regular, CTA Bilaterally Gastrointestinal: Yes: Normal Bowel Sounds, Soft ...Rectal Exam: Yes: Deferred Genitourinary: Yes: Zepeda Present, Incontinence Breast(s): Yes: WNL Musculoskeletal: Yes: Muscle Weakness Extremities: Yes: WNL Edema: No Peripheral Pulses WNL: Yes Integumentary: Yes: Pressure Ulcer (sacrum) Neurological: Yes: Lethargy, Unsteady Gait, Weakness ...Motor Strength: LUE (muscle weakness), LLE (muscle weakness), RUE (muscle weakness), RLE (muscle weakness) Psychiatric: Yes: Other (lethargy) Labs: CBC, BMP 12/28/19 07:00 12/28/19 07:00 INR, PTT INR 1.17 (0.83-1.09) H 12/24/19 08:34 - ....Imaging Other: Report Reviewed (lab data reviewed) Problem List - Problems (1) Urinary tract infection Code(s): N39.0 - URINARY TRACT INFECTION, SITE NOT SPECIFIED (2) Fever Code(s): R50.9 - FEVER, UNSPECIFIED (3) Leukocytosis Code(s): D72.829 - ELEVATED WHITE BLOOD CELL COUNT, UNSPECIFIED (4) Prerenal azotemia Code(s): R79.89 - OTHER SPECIFIED ABNORMAL FINDINGS OF BLOOD CHEMISTRY (5) Dehydration Code(s): E86.0 - DEHYDRATION (6) Hypernatremia Code(s): E87.0 - HYPEROSMOLALITY AND HYPERNATREMIA (7) Sepsis due to urinary tract infection Code(s): A41.9 - SEPSIS, UNSPECIFIED ORGANISM; N39.0 - URINARY TRACT INFECTION, SITE NOT SPECIFIED (8) Sepsis Code(s): A41.9 - SEPSIS, UNSPECIFIED ORGANISM Qualifiers: Sepsis type: sepsis due to unspecified organism Sepsis acute organ dysfu nction status: unspecified Qualified Code(s): A41.9 - Sepsis, unspecified organism (9) Hypokalemia Code(s): E87.6 - HYPOKALEMIA Assessment/Plan Assessment/plan: acute UTI, leukocytosis resolved, prerenal azotemia, dehydration, acute hypokalemia, acute iron deficiency anemia, HTN, HLD, IDDM, schizophrenia, PVD, CVA, epilepsy; IV Ceftriaxone for UTI; SQ Lovenox and oral pantoprazole for DVT/GI prophylaxis; Novolog 70/30 mix and sliding scale regular insulin coverage for IDDM; IV fluids for dehydration; IV Venofer for iron deficency anemia; IV potassium chloride for hypokalemia; atorvastatin for HLD; losartan for HTN; haloperidol for behavior disorder; keppra for epilepsy; docusate for constipation; physical therapy for deconditioning.
[2019-12-28 09:33] LABS: POTASSIUM 2.8 mmol/L (3.5-5.1)
[2019-12-28] MEDS ORDERED: IRON SUCROSE INJECTION 200 MG in SODIUM CHLORIDE 90 ML IVPB ONE (10:00)
[2019-12-28] MEDS: KCL 10 MEQ IVPB 10 MEQ/100 ML INFUS.BAG IVPB SCH ×3 (10:46→14:21)
[2019-12-28] MEDS: D5-1/2NS+20 MEQ KCL - 20 MEQ/1,000 ML INFUS.BAG IV SCH (10:47)
[2019-12-28] MEDS: CEFTRIAXONE 1 GM in DEXTROSE 5%-WATER - 50 ML IVPB SCH (11:19)
[2019-12-28] MEDS: ENOXAPARIN NA (PORCINE) 40 MG/0.4 ML DISP.SYRIN SQ SCH (11:19)
[2019-12-28] MEDS: CHOLECALCIFEROL (VIT D3) 1,000 UNIT (25 MCG) TABLET PO SCH (11:20)
[2019-12-28] MEDS: PANTOPRAZOLE 40 MG TABLET PO SCH (11:20)
[2019-12-28] MEDS: LOSARTAN POTASSIUM 25 MG TABLET PO SCH (11:20)
[2019-12-28] MEDS: DOCUSATE SODIUM 100 MG CAPSULE (FP) PO SCH (11:20)
[2019-12-28] MEDS: MAGNESIUM CL 64 MG TABLET.SA PO SCH ×2 (12:14→12:58)
[2019-12-28] MEDS: CALCIUM CARBONATE 650 MG TABLET PO SCH ×2 (12:14→21:44)
[2019-12-28] MEDS: levETIRAcetam 500 MG/5 ML INJECTION VIAL IVPB SCH (12:44)
[2019-12-28] MEDS ORDERED: PT OWN MED DRAWER 7, Y5N ONE ×4 (14:19→21:16)
--- NOTE | 2019-12-28 21:29 | PN ---
Progress Note, Physician History of Present Illness: AWAKE, NON VERBAL NO ACUTE DISTRESS TEMPS REMAIN DOWN AFEBRILE WBC IMPROVED WNL BC (-) URINE C/S NORMAL SEGUNDO - Current Medication List Current Medications: Active Medications Acetaminophen (Tylenol -) 650 mg PO Q6H PRN PRN Reason: FEVER Acetaminophen (Tylenol Suppository -) 650 mg RC Q6H PRN PRN Reason: FEVER Atorvastatin Calcium (Lipitor -) 20 mg PO HS [facility] Last Admin: 12/27/19 22:00 Dose: 20 mg Documented by: Calcium Carbonate (Calcium Carbonate -) 650 mg PO BID [facility] Last Admin: 12/28/19 12:14 Dose: 650 mg Documented by: Cholecalciferol (Vitamin D3 -) 1,000 unit PO DAILY [facility] Last Admin: 12/28/19 11:20 Dose: 1,000 unit Documented by: Docusate Sodium (Colace -) 200 mg PO DAILY [facility] Last Admin: 12/28/19 11:20 Dose: 200 mg Documented by: Enoxaparin Sodium (Lovenox -) 40 mg SQ DAILY [facility] Last Admin: 12/28/19 11:19 Dose: 40 mg Documented by: Haloperidol (Haldol -) 3 mg PO HS [facility] Last Admin: 12/27/19 22:00 Dose: 3 mg Documented by: Haloperidol (Haldol -) 1 mg PO BID PRN PRN Reason: AGITATION Ceftriaxone Sodium 1 gm/ (Dextrose) 50 mls @ 100 mls/hr IVPB DAILY [facility]; Protocol Last Admin: 12/28/19 11:19 Dose: 100 mls/hr Documented by: Potassium Chloride/Dextrose/Sod Cl (D5-1/2ns+20 Meq Kcl -) 20 meq in 1,000 mls @ 50 mls/hr IV ASDIR [facility] Last Admin: 12/28/19 10:47 Dose: 50 mls/hr Documented by: Insulin Aspart (Novolog Vial Sliding Scale -) 1 vial SQ TIDAC [facility]; Protocol Last Admin: 12/28/19 17:45 Dose: 2 unit Documented by: Insulin Aspart (Novolog Mix 70/30 Vial) 6 units SQ BIDAC [facility] Last Admin: 12/28/19 17:44 Dose: 6 unit Documented by: Levetiracetam (Keppra Injection -) 750 mg IVPB Q12H [facility] Last Admin: 12/28/19 12:44 Dose: 750 mg Documented by: Losartan Potassium (Cozaar -) 25 mg PO DAILY [facility] Last Admin: 12/28/19 11:20 Dose: 25 mg Documented by: Magnesium Chloride (Slow-Mag -) 64 mg PO DAILY [facility] Last Admin: 12/28/19 12:58 Dose: Not Given Documented by: Pantoprazole Sodium (Protonix -) 40 mg PO DAILY [facility] Last Admin: 12/28/19 11:20 Dose: 40 mg Documented by: - Objective Vital Signs: Vital Signs Temperature 98.2 F 12/28/19 14:00 Pulse Rate 65 12/28/19 14:00 Respiratory Rate 17 12/28/19 17:00 Blood Pressure 120/55 L 12/28/19 14:00 O2 Sat by Pulse Oximetry (%) 96 12/28/19 17:00 Constitutional: Yes: No Distress Eyes: Yes: Conjunctiva Clear Cardiovascular: Yes: Regular Rate and Rhythm, S1, S2 Respiratory: Yes: Regular Gastrointestinal: Yes: Normal Bowel Sounds, Soft Edema: No Labs: CBC, BMP 12/28/19 07:00 12/28/19 07:00 INR, PTT INR 1.17 (0.83-1.09) H 12/24/19 08:34 Assessment/Plan UTI R/O SEPSIS SECONDARY TO UTI FEVER/ LEUKOCYTOSIS IMPROVED CVA DIABETES MELLITUS MAY SUBSTITUTE CEFTIN 500MG PO BID X 7D
[2019-12-28] MEDS: HALOPERIDOL 1 MG TABLET PO SCH (21:45)
[2019-12-28] MEDS: ATORVASTATIN CA 20 MG TABLET (FP) PO SCH (21:46)
[2019-12-28] MEDS ORDERED: CEFUROXIME AXETIL 500 MG TABLET PO SCH (22:00)
[2019-12-29] MEDS: levETIRAcetam 500 MG/5 ML INJECTION VIAL IVPB SCH ×2 (01:46→12:24)
[2019-12-29] MEDS: INSULIN (NOVOLOG MIX 70/30) 100 UNITS/ML MDV SQ SCH (06:47)
[2019-12-29] MEDS: INSULIN SLIDING SCALE (NOVOLOG) 1 VIAL SQ SCH ×2 (06:48→12:24)
[2019-12-29] MEDS ORDERED: PT OWN MED DRAWER 7, Y5N ONE ×2 (07:23→11:06)
[2019-12-29] MEDS: D5-1/2NS+20 MEQ KCL - 20 MEQ/1,000 ML INFUS.BAG IV SCH ×2 (07:30→11:12)
--- NOTE | 2019-12-29 08:45 | PN ---
Progress Note, Physician Chief Complaint: Patient seen and examined at the bedside, nonverbal, no acute events from last night, afebrile. History of Present Illness: This 74 yr old w/f with PMH of HTN, HLD, anemia, schizophrenia, PVD, CVA, IDDM, epilepsy admitted via ER with an acute UTI, fever, lethargy, leukocytosis, prerenal azotemia, dehydration, and hypernatremia. - Current Medication List Current Medications: Active Medications Acetaminophen (Tylenol -) 650 mg PO Q6H PRN PRN Reason: FEVER Acetaminophen (Tylenol Suppository -) 650 mg RC Q6H PRN PRN Reason: FEVER Atorvastatin Calcium (Lipitor -) 20 mg PO HS [facility] Last Admin: 12/28/19 21:46 Dose: 20 mg Documented by: Calcium Carbonate (Calcium Carbonate -) 650 mg PO BID [facility] Last Admin: 12/28/19 21:44 Dose: 650 mg Documented by: Cholecalciferol (Vitamin D3 -) 1,000 unit PO DAILY [facility] Last Admin: 12/28/19 11:20 Dose: 1,000 unit Documented by: Docusate Sodium (Colace -) 200 mg PO DAILY [facility] Last Admin: 12/28/19 11:20 Dose: 200 mg Documented by: Enoxaparin Sodium (Lovenox -) 40 mg SQ DAILY [facility] Last Admin: 12/28/19 11:19 Dose: 40 mg Documented by: Haloperidol (Haldol -) 3 mg PO HS [facility] Last Admin: 12/28/19 21:45 Dose: 3 mg Documented by: Haloperidol (Haldol -) 1 mg PO BID PRN PRN Reason: AGITATION Ceftriaxone Sodium 1 gm/ (Dextrose) 50 mls @ 100 mls/hr IVPB DAILY [facility]; Protoco l Last Admin: 12/28/19 11:19 Dose: 100 mls/hr Documented by: Potassium Chloride/Dextrose/Sod Cl (D5-1/2ns+20 Meq Kcl -) 20 meq in 1,000 mls @ 50 mls/hr IV ASDIR [facility] Last Admin: 12/29/19 07:30 Dose: 50 mls/hr Documented by: Insulin Aspart (Novolog Vial Sliding Scale -) 1 vial SQ TIDAC [facility]; Protocol Last Admin: 12/29/19 06:48 Dose: Not Given Documented by: Insulin Aspart (Novolog Mix 70/30 Vial) 6 units SQ BIDAC [facility] Last Admin: 12/29/19 06:47 Dose: 6 unit Documented by: Levetiracetam (Keppra Injection -) 750 mg IVPB Q12H [facility] Last Admin: 12/29/19 01:46 Dose: 750 mg Documented by: Losartan Potassium (Cozaar -) 25 mg PO DAILY [facility] Last Admin: 12/28/19 11:20 Dose: 25 mg Documented by: Magnesium Chloride (Slow-Mag -) 64 mg PO DAILY [facility] Last Admin: 12/28/19 12:58 Dose: Not Given Documented by: Pantoprazole Sodium (Protonix -) 40 mg PO DAILY [facility] Last Admin: 12/28/19 11:20 Dose: 40 mg Documented by: - Objective Vital Signs: Vital Signs Temperature 98.4 F 12/29/19 06:00 Pulse Rate 73 12/29/19 06:00 Respiratory Rate 18 12/29/19 06:00 Blood Pressure 130/62 12/29/19 06:00 O2 Sat by Pulse Oximetry (%) 93 L 12/29/19 06:00 Constitutional: Yes: Well Nourished, No Distress, Calm Eyes: Yes: Conjunctiva Clear, EOM Intact HENT: Yes: Atraumatic, Normocephalic Neck: Yes: Supple, Trachea Midline Cardiovascular: Yes: Regular Rate and Rhythm Respiratory: Yes: Regular, CTA Bilaterally Gastrointestinal: Yes: Normal Bowel Sounds, Soft ...Rectal Exam: Yes: Deferred Genitourinary: Yes: Incontinence Breast(s): Yes: WNL Musculoskeletal: Yes: Muscle Weakness Extremities: Yes: WNL Edema: No Peripheral Pulses WNL: Yes Integumentary: Yes: Pressure Ulcer (buttocks and sacrum) Neurological: Yes: Alert, Unsteady Gait, Weakness, Other (nonverbal) ...Motor Strength: LUE (muscle weakness), LLE (muscle weakness), RUE (muscle weakness), RLE (muscle weakness) Psychiatric: Yes: Alert Labs: CBC, BMP 12/28/19 07:00 12/28/19 07:00 INR, PTT INR 1.17 (0.83-1.09) H 12/24/19 08:34 - ....Imaging Other: Report Reviewed (lab data reviewed) Problem List - Problems (1) Urinary tract infection Code(s): N39.0 - URINARY TRACT INFECTION, SITE NOT SPECIFIED (2) Fever Code(s): R50.9 - FEVER, UNSPECIFIED (3) Leukocytosis Code(s): D72.829 - ELEVATED WHITE BLOOD CELL COUNT, UNSPECIFIED (4) Prerenal azotemia Code(s): R79.89 - OTHER SPECIFIED ABNORMAL FINDINGS OF BLOOD CHEMISTRY (5) Dehydration Code(s): E86.0 - DEHYDRATION (6) Hypernatremia Code(s): E87.0 - HYPEROSMOLALITY AND HYPERNATREMIA (7) Sepsis due to urinary tract infection Code(s): A41.9 - SEPSIS, UNSPECIFIED ORGANISM; N39.0 - URINARY TRACT INFECTION, SITE NOT SPECIFIED (8) Sepsis Code(s): A41.9 - SEPSIS, UNSPECIFIED ORGANISM Qualifiers: Sepsis type: sepsis due to unspecified organism Sepsis acute organ dysfunction status: unspecified Qualified Code(s): A41.9 - Sepsis, unspecified organism (9) Hypokalemia Code(s): E87.6 - HYPOKALEMIA Assessment/Plan Assessment/plan: acute UTI, fever, lethargy, leukocytosis, prerenal azotemia, dehydration, hypokalemia, hypernatremia, HTN, HLD, schizophrenia, epilepsy, IDDM, PVD, CVA, iron deficiency anemia; Ceftin 500mg po bid for UTI; keppra for epilepsy; haloperidol for behavior disorder; IV venofer for iron deficiency anemia; SQ Lovonox and oral pantoprazole for DVT/GI prophylaxis; physical therapy for deconditioning; atorvastatin for HLD; losartan for HTN; Novolog 70/30 mix and sliding scale regular insulin coverage for IDDM.
[2019-12-29 10:37] LABS: BASO % 0.7 % (0-2.0); HEMATOCRIT 37.6 % (32.4-45.2); HEMOGLOBIN 12.1 GM/dL (10.7-15.3); LYMPH % 24.3 % (8-40); MCH 28.7 pg (25.7-33.7); MCHC 32.2 g/dl (32.0-36.0); MEAN PLT VOLUME 9.2 fl (7.5-11.1); MONO % 12.4 % (3.8-10.2); NEUT % 61.6 % (42.8-82.8); PLATELET COUNT 185 K/MM3 (134-434); RBC 4.23 M/mm3 (3.60-5.2); RDW 15.4 % (11.6-15.6); WHITE BLOOD COUNT 11.5 K/mm3 (4.0-10.0)
[2019-12-29 11:04] LABS: CALCIUM 8.3 mg/dL (8.5-10.1)
[2019-12-29 11:05] LABS: ALBUMIN 2.5 g/dl (3.4-5.0)
[2019-12-29] MEDS ORDERED: cefTRIAXone SODIUM 1 GM VIAL ONE (11:06)
[2019-12-29] MEDS ORDERED: DEXTROSE 5%-WATER - 50 ML IVPB ONE (11:07)
[2019-12-29 11:08] LABS: CREATININE 0.4 mg/dL (0.55-1.3)
[2019-12-29 11:10] LABS: BILIRUBIN,TOTAL 0.2 mg/dL (0.2-1); TOT PROT 5.8 g/dl (6.4-8.2)
[2019-12-29] MEDS: CEFTRIAXONE 1 GM in DEXTROSE 5%-WATER - 50 ML IVPB SCH (11:14)
[2019-12-29] MEDS: LOSARTAN POTASSIUM 25 MG TABLET PO SCH (11:15)
[2019-12-29] MEDS: CALCIUM CARBONATE 650 MG TABLET PO SCH (11:15)
[2019-12-29] MEDS: DOCUSATE SODIUM 100 MG CAPSULE (FP) PO SCH (11:15)
[2019-12-29] MEDS: PANTOPRAZOLE 40 MG TABLET PO SCH (11:16)
[2019-12-29] MEDS: ENOXAPARIN NA (PORCINE) 40 MG/0.4 ML DISP.SYRIN SQ SCH (11:16)
[2019-12-29] MEDS: MAGNESIUM CL 64 MG TABLET.SA PO SCH (11:16)
[2019-12-29] MEDS: CHOLECALCIFEROL (VIT D3) 1,000 UNIT (25 MCG) TABLET PO SCH (11:17)
[2019-12-29] MEDS ORDERED: POTASSIUM CHLORIDE TABS 10 MEQ TABLET.ER (FP) PO SCH (12:00)
[2019-12-29] MEDS ORDERED: INSULIN (NOVOLOG) ASPART 100 UNITS/ML 10ML VIAL ONE (12:21)
--- NOTE | 2019-12-29 13:59 | DS ---
Physical Examination Vital Signs: Vital Signs Temperature 98.4 F 12/29/19 06:00 Pulse Rate 63 12/29/19 09:09 Respiratory Rate 18 12/29/19 09:09 Blood Pressure 130/62 12/29/19 06:00 O2 Sat by Pulse Oximetry (%) 97 12/29/19 09:09 Constitutional: Yes: Well Nourished, No Distress, Calm Eyes: Yes: Conjunctiva Clear, EOM Intact HENT: Yes: Atraumatic, Normocephalic Neck: Yes: Supple, Trachea Midline Cardiovascular: Yes: Regular Rate and Rhythm Respiratory: Yes: Regular, CTA Bilaterally Gastrointestinal: Yes: Normal Bowel Sounds, Soft ...Rectal Exam: Yes: Deferred Renal/: Yes: Zepeda Present, Incontinence Breast(s): Yes: WNL Musculoskeletal: Yes: Muscle Weakness Extremities: Yes: WNL Edema: No Peripheral Pulses WNL: Yes Integumentary: Yes: Pressure Ulcer (buttocks and sacrum) Neurological: Yes: Alert, Unsteady Gait, Weakness ...Motor Strength: LUE (muscle weakness), LLE (muscle weakness), RUE (muscle weakness), RLE (muscle weakness) Psychiatric: Yes: Alert Labs: CBC, BMP 12/29/19 09:53 12/29/19 09:53 Discharge Summary Problems reviewed: Yes Reason For Visit: URINARY TRACT INFECTION SEPSIS Current Active Problems Dehydration (Acute) Fever (Acute) Hypernatremia (Acute) Hypokalemia (Acute) Leukocytosis (Acute) Prerenal azotemia (Acute) Sepsis (Acute) Sepsis due to urinary tract infection (Acute) Urinary tract infection (Acute) - Instructions - Home Medications Comprehensive Discharge Medication List: Ambulatory Orders Calcium Carbonate/Vitamin D3 [Caltrate-600 Plus (Nf)] 1 combo NR BID 04/21/12 Docusate Sodium [Colace -] 200 mg PO HS 04/21/12 Haloperidol [Haldol -] 3 mg PO HS 04/21/12 Losartan Potassium 25 mg PO DAILY 04/21/12 levETIRAcetam [Keppra Oral Solution -] 750 mg PO BID 04/21/12 Haloperidol 1 mg PO BID PRN 06/19/13 Acetaminophen [Tylenol .Regular Strength -] 650 mg PO Q6H PRN #0 tablet 06/21/13 Magnesium Chloride [Slow-Mag -] 64 mg PO DAILY@0900 #0 tablet.sa 06/21/13 Oseltamivir Phosphate [Tamiflu -] 75 mg PO BID #0 capsule 06/21/13 Acetaminophen Suppository [Tylenol .Suppository -] 650 mg RC Q6H PRN supp.rect 12/29/19 Acetaminophen [Tylenol .Regular Strength -] 650 mg PO Q6H PRN tablet 12/29/19 Atorvastatin Ca [Lipitor] 20 mg PO HS tablet 12/29/19 Calcium Carbonate - 650 mg PO BID tablet 12/29/19 Cefuroxime Axetil [Ceftin -] 500 mg PO BID #14 tablet 12/29/19 Cholecalciferol (Vitamin D3) [Vitamin D3 -] 1,000 unit PO DAILY tab 12/29/19 Docusate Sodium [Colace -] 200 mg PO DAILY capsule 12/29/19 Haloperidol [Haldol -] 1 mg PO BID PRN tablet 12/29/19 Haloperidol [Haldol -] 3 mg PO HS tablet 12/29/19 Insulin (Novolog 70/30) [Novolog Mix 70/30 Vial -] 6 units SQ BIDAC #360 units 12/29/19 Losartan Potassium [Cozaar -] 25 mg PO DAILY tablet 12/29/19 Magnesium Chloride [Slow-Mag -] 64 mg PO DAILY tablet.sa 12/29/19 Potassium Chloride [K-Dur -] 20 meq PO DAILY #7 tablet.er 12/29/19
[2019-12-29 14:57] VITALS: BP 123/61; PULSE 66; TEMP 97.2
== END 2019-12-29 16:50 | DRG 872 ==
LOC: JER 07:46 → JERBED 09:14 → J8W 12:52
PROVIDERS: ADMIT Internal Medicine; ATTEND Internal Medicine
DX: A41.9 Sepsis, unspecified organism (principal); L89.323 Pressure ulcer of left buttock, stage 3; N39.0 Urinary tract infection, site not specified; E87.0 Hyperosmolality and hypernatremia; E78.5 Hyperlipidemia, unspecified; G40.909 Epilepsy, unspecified, not intractable, without status epilepticus; E11.51 Type 2 diabetes mellitus with diabetic peripheral angiopathy without gangrene; F20.9 Schizophrenia, unspecified; D64.9 Anemia, unspecified; F03.90 Unspecified dementia, unspecified severity, without behavioral disturbance, psychotic disturbance, mood disturbance, and anxiety; I10 Essential (primary) hypertension; R50.9 Fever, unspecified; D72.829 Elevated white blood cell count, unspecified; R79.89 Other specified abnormal findings of blood chemistry; E86.0 Dehydration; L89.152 Pressure ulcer of sacral region, stage 2; L89.312 Pressure ulcer of right buttock, stage 2; E87.6 Hypokalemia; R53.83 Other fatigue; Z86.73 Personal history of transient ischemic attack (TIA), and cerebral infarction without residual deficits
CPT/HCPCS: 36415; 71045-TC-FY; 80053; 81003; 82728; 82803; 82962; 83036; 83540; 83550; 83605; 84484; 85025; 85379; 85610; 85651; 85730; 86140; 87040; 87086; 93005; 93010; 93970-TC; 97162-GP; 99291; C9803; J0131; J1756; U0003